=== PATIENT | male | born 1965 | race Caucasian/White ===

== ENCOUNTER → 2024-09-27 11:00 | Outpatient (REF) | payer SELFPAY | LOC: HWRAD 11:00 | PROVIDERS: ATTENDING PHYSICIAN Family Medicine | DX: E78.5 Hyperlipidemia, unspecified (principal) | CPT/HCPCS: 75571 ==

== ENCOUNTER → 2025-04-19 10:31 | Outpatient (REF) | payer BC, SELFPAY | LOC: HWRAD 10:31 | PROVIDERS: ATTENDING PHYSICIAN Family Medicine | DX: I67.2 Cerebral atherosclerosis (principal); I65.1 Occlusion and stenosis of basilar artery | CPT/HCPCS: 93880 ==

== ENCOUNTER → 2025-05-09 07:00 | Outpatient (REF) | payer BC, SELFPAY | LOC: RAD 07:00 | PROVIDERS: ATTENDING PHYSICIAN Family Medicine | DX: I77.1 Stricture of artery (principal) | CPT/HCPCS: 93931 ==

== ENCOUNTER → 2025-06-15 08:46 | Outpatient (REF) | payer BC, SELFPAY | LOC: RCS 08:46 | PROVIDERS: ATTENDING PHYSICIAN Family Medicine | DX: I49.49 Other premature depolarization (principal) | CPT/HCPCS: 93225; 93226 ==

== ENCOUNTER → 2025-08-02 10:00 | Outpatient (REF) | payer BC, SELFPAY | LOC: RCS 10:00 | PROVIDERS: ATTENDING PHYSICIAN Internal Medicine Cardiovascular Disease; FAMILY PHYSICIAN Family Medicine | DX: R00.2 Palpitations (principal); I49.3 Ventricular premature depolarization; I25.10 Atherosclerotic heart disease of native coronary artery without angina pectoris | CPT/HCPCS: 93017; 93350 ==

== ENCOUNTER → 2025-08-03 12:49 | Outpatient (REF) | payer BC, SELFPAY | LOC: HWRCS 12:49 | PROVIDERS: ATTENDING PHYSICIAN Internal Medicine Cardiovascular Disease; FAMILY PHYSICIAN Family Medicine | DX: R00.2 Palpitations (principal); I49.3 Ventricular premature depolarization; I25.10 Atherosclerotic heart disease of native coronary artery without angina pectoris | CPT/HCPCS: 93306 ==